=== PATIENT | female | born 1945 | race Caucasian/White ===

== ENCOUNTER → 2017-05-02 | Outpatient (CLI) | payer MEDICARE, OTHER ==
[~2017-05-02] MED LIST: ACTOS15 MG PO; ASPIRIN E.C. 8181 MG PO; BIO-CEF500 MG PO; CALCIUM1 CAP PO; CITALOPRAM20 MG PO; METFORMIN850 MG PO; PREMPRO 0.625/21 TAB PO; VICODIN 5/5001 UDTAB PO; ZESTRIL5 MG PO; ZOCOR 10MG10 MG PO
== END ==
LOC: MC.RAD 11:40
DX: Z12.31 Encounter for screening mammogram for malignant neoplasm of breast (principal)

== ENCOUNTER → 2018-11-09 | Outpatient (CLI) | payer MEDICARE, OTHER | LOC: MC.RAD 14:16 | DX: Z12.31 Encounter for screening mammogram for malignant neoplasm of breast (principal) ==

== ENCOUNTER 2021-03-22 08:38 | Outpatient (CLI) | payer MEDICARE, OTHER ==
[2021-03-22] VITALS (7 sets, daily range): BP systolic 126–157; BP diastolic 55–76; PULSE 63–82
[~2021-03-22] VITALS: Ht 165.1 cm; Wt 100.5 kg
[~2021-03-22 08:38] MED LIST changes: +CALCIUM 600MG+D1 TAB PO; +CELEXA 20MG20 MG/TAB PO; +GLUCOPHAGE1000 MG PO; +JARDIANCE10 PO; +LANTUS100 U/ML SQ; -METFORMIN850 MG PO; +MYSOLINE 5050 MG/TAB PO; +PRILOSEC 20MG20 MG PO; +PRINIVIL5 MG PO
[2021-03-22] MEDS ORDERED: ZOCOR5 MG PO (08:54)
--- NOTE | 2021-03-22 11:32 | NUR ---
DC instructions reviewed with pt, she expresses understanding. She is assisted out to daughter's car by wheelchair. Bandaid remains clean, dry and intact to lower back.
== END 2021-03-22 12:11 | disposition home or self-care (01) ==
LOC: COL.RAD 08:38
DX: M43.16 Spondylolisthesis, lumbar region (principal); M48.061 Spinal stenosis, lumbar region without neurogenic claudication; M51.36 Other intervertebral disc degeneration, lumbar region; Z98.890 Other specified postprocedural states
CPT/HCPCS: Q9965